=== PATIENT | female | born 1970 | race Caucasian/White ===

== ENCOUNTER 2018-04-29 13:37 | Inpatient (IN) | payer MEDICAID ==
[~2018-04-29] VITALS: Ht 165.1 cm; Wt 98.4 kg
--- NOTE | 2018-04-29 13:45 | NUR ---
PT BIB SELF WHO CAME IN DUE TO CHEST PAIN, 2HOURS PA, NON RADIATING. ALERT AND ORIENTED X 4, VERBALLY RESPONSIVE AND ABLE TO MAKE NEEDS KNOWN. ON ROOM AIR, BREATHING EVENLY AND UNLABORED. 6/10 PAIN SCALE. HOOKED UP ON THE MONITOR. KEPT COMFORTABLE. WILL CONTINUE TO MONITOR ACCORDINGLY.
[2018-04-29 14:01] LABS: BASOPHILS # (AUTO) 0.1 /CMM (0.0-0.2); EOSINOPHILS % (AUTO) 1.3 % (0.0-6.0); HEMATOCRIT 41 % (33-45); HEMOGLOBIN 13.6 g/dL (11.5-14.8); LYMPHOCYTES # (AUTO) 1.3 /CMM (0.8-4.8); LYMPHOCYTES % (AUTO) 17.1 % (20.0-44.0); MEAN CORPUSCULAR HGB CONC 33 g/dl (31.0-36.0); MEAN CORPUSCULAR VOLUME 90 fL (82-100); MONOCYTES # (AUTO) 0.7 /CMM (0.1-1.30); NEUTROPHILS # (AUTO) 5.6 /CMM (1.8-8.9); NEUTROPHILS % (AUTO) 71.6 % (43.0-81.0); PLATELET COUNT (AUTO) 193 /CMM (150-450); RED BLOOD CELL COUNT(AUTO) 4.61 MIL/uL (4.0-5.2); WHITE BLOOD COUNT (AUTO) 7.9 K/uL (4.3-11.0)
--- NOTE | 2018-04-29 14:05 | NUR ---
URINE COLLECTED AND SENT TO LAB.
[2018-04-29] MEDS ORDERED: NITROGLYCERIN PACKET 1 GM PACKET TD ONE (14:30)
[2018-04-29] MEDS ORDERED: ASPIRIN 81 MG TAB.CHEW PO ONE (14:30)
[2018-04-29] MEDS ORDERED: FUROSEMIDE 40 MG/4 ML VIAL IV ONE (14:30)
[2018-04-29] MEDS ORDERED: FUROSEMIDE 40 MG/4 ML VIAL ONE (14:39)
[2018-04-29] MEDS ORDERED: NITROGLYCERIN PACKET 1 GM PACKET ONE (14:40)
[2018-04-29] MEDS ORDERED: ASPIRIN EC 81 MG TABLET.DR PO ONE (14:40)
[2018-04-29 14:51] LABS: CALCIUM, SERUM 8.9 mg/dL (8.5-10.1); CARBON DIOXIDE 28 mmol/L (21-32); CHLORIDE 103 mmol/L (98-107); GLUCOSE 101 mg/dL (74-106); POTASSIUM 4.4 mmol/L (3.5-5.1); SODIUM SERUM 139 mmol/L (136-145); UREA NITROGEN, BLOOD 12 mg/dL (7-18)
[2018-04-29] MEDS ORDERED: AMBR10TA PO (14:59)
[2018-04-29] MEDS ORDERED: ATOR40TA PO (14:59)
[2018-04-29] MEDS ORDERED: POTA20TA83 PO (14:59)
[2018-04-29] MEDS ORDERED: SPIR50TA5 PO (14:59)
[2018-04-29] MEDS ORDERED: FERR325T27 PO (14:59)
[2018-04-29] MEDS ORDERED: CALC1TAB91 PO (14:59)
[2018-04-29] MEDS ORDERED: ALLO300T2 PO (14:59)
[2018-04-29] MEDS ORDERED: TADA20TA42 PO (15:02)
[2018-04-29] MEDS ORDERED: FURO40TA5 PO (15:02)
[2018-04-29 15:04] LABS: ALANINE AMINOTRANSFERASE 34 U/L (12-78); ALBUMIN 3.7 g/dL (3.4-5.0); ALKALINE PHOSPHATASE 83 U/L (46-116); ASPARTATE AMINOTRANSFERASE 21 U/L (15-37); B-TYPE NATRIURETIC PEPTIDE 812 PG/ML (0-125); BILIRUBIN,DIRECT 0.1 mg/dL (0.0-0.2); BILIRUBIN,TOTAL 0.3 mg/dL (0.2-1.0); TOTAL PROTEIN, SERUM 7.2 g/dL (6.4-8.2)
--- NOTE | 2018-04-29 17:42 | NUR ---
REPORT GIVEN TO HARRY PEREZ FOR FRANCISCA.
--- NOTE | 2018-04-29 18:09 | NUR ---
WHEELED PATIENT VIA GURNEY ACCOMPANIED BY EMT AND RN SSSIGNED VIA ACLS PROTOCOL TO ROOM 116-1 T. IN NO APPARENT DISTRESS NOTED.
--- NOTE | 2018-04-29 18:15 | NUR ---
SENIOR HYDROGEOLOGIST NOTES RECEIVED PT IN ROOM 116-1. PT IS A/OX4. PT HAVING CHEST PAIN-NON RADIATING. MONITORED ON TELE. SR 89. VITALS TAKEN. WILL REPORT TO PM NURSE FOR ADMISSION. BELONGINGS DONE BY SHAYY BARAJAS.
[2018-04-29 20:00] VITALS: BP 117/69
[2018-04-29] MEDS ORDERED: MAGNESIUM HYDROXIDE 30 ML UDC PO PRN (21:00)
[2018-04-29] MEDS ORDERED: MAG HYDROX/AL HYDROX/SIMETH 30 ML UDC PO PRN (21:00)
[2018-04-29] MEDS ORDERED: ONDANSETRON HCL/PF 4 MG/2 ML VIAL IVP PRN (21:00)
[2018-04-29] MEDS ORDERED: ZOLPIDEM TARTRATE 5 MG TABLET PO PRN (21:00)
[2018-04-29] MEDS ORDERED: Z GUARD REMEDY 2 OZ OINT TP PRN (21:00)
[2018-04-29] MEDS: HYDROCODONE/APAP 5/325MG 1 EACH TABLET PO PRN (21:25)
[2018-04-29] MEDS: ACETAMINOPHEN 325 MG TABLET PO PRN (23:39)
[2018-04-30] VITALS: BP 106/55
--- NOTE | 2018-04-30 00:10 | NUR ---
RN NOTES GAVE REPORT AND PATIENT TO CHRIS CAMARA
--- NOTE | 2018-04-30 00:11 | NUR ---
RN NOTES Received report from CHRIS Rankin for assume of care to this patient. Patient noted asleep on supine position. Call light within easy reach. No SOB/respiratory distress noted. Will continue to monitor accordingly.
[2018-04-30 00:17] VITALS: BP 106/55
[2018-04-30] MEDS: HYDROCODONE/APAP 5/325MG 1 EACH TABLET PO PRN ×5 (03:37→19:56)
--- NOTE | 2018-04-30 03:39 | NUR ---
RN NOTES Patient complained of headache and chest pain that is localized, tight, similar to the pain on admission, 10/21. Administered [place] as ordered. Will continue to monitor.
[2018-04-30 03:46] LABS: BASOPHILS # (AUTO) 0.1 /CMM (0.0-0.2); BASOPHILS % (AUTO) 0.6 % (0.0-2.0); EOSINOPHILS % (AUTO) 1.4 % (0.0-6.0); HEMATOCRIT 41 % (33-45); HEMOGLOBIN 13.5 g/dL (11.5-14.8); LYMPHOCYTES # (AUTO) 1.4 /CMM (0.8-4.8); LYMPHOCYTES % (AUTO) 15.2 % (20.0-44.0); MEAN CORPUSCULAR HGB CONC 33 g/dl (31.0-36.0); MEAN CORPUSCULAR VOLUME 89 fL (82-100); MONOCYTES % (AUTO) 10.9 % (2.0-12.0); NEUTROPHILS # (AUTO) 6.5 /CMM (1.8-8.9); NEUTROPHILS % (AUTO) 71.9 % (43.0-81.0); PLATELET COUNT (AUTO) 181 /CMM (150-450); RED BLOOD CELL COUNT(AUTO) 4.65 MIL/uL (4.0-5.2); WHITE BLOOD COUNT (AUTO) 9.1 K/uL (4.3-11.0)
[2018-04-30 04:00] VITALS: BP 100/62
[2018-04-30 04:03] LABS: CALCIUM, SERUM 9.1 mg/dL (8.5-10.1); CREATININE 1.2 mg/dL (0.6-1.3); MAGNESIUM 1.7 mg/dL (1.8-2.4); PHOSPHORUS 4.6 mg/dL (2.5-4.9); POTASSIUM 3.9 mmol/L (3.5-5.1)
[2018-04-30 04:15] LABS: THYROID STIMULATING HORMONE 2.634 uIU/mL (0.358-3.74)
[2018-04-30] MEDS: ACETAMINOPHEN 325 MG TABLET PO PRN (06:35)
--- NOTE | 2018-04-30 06:50 | NUR ---
PIGMENT MAKING SUPERVISOR CLOSING NOTES Patient asleep on bed on supine position. With patent peripheral IV line LAC G#20, SL. Patient denies discomfort at this time. On tele monitor with SR - 90. On RA, no SOB/respiratory distress noted. All needs attended. Due meds given as ordered. Kept bed low and locked. Call light within easy reach. Endorsed to the next shift.
--- NOTE | 2018-04-30 07:30 | NUR ---
RECEIVED PT. THIS AM ALERT AND ORIENTD X4. NO COMPLAINTS OFFERED.
[2018-04-30 08:00] VITALS: BP_SYST 102; BP_SYST 108; BP_DIAS 56
[2018-04-30] MEDS: PANTOPRAZOLE 40 MG TABLET.DR PO SCH (08:07)
[2018-04-30] MEDS: FERROUS SULFATE (325 MG) 325 MG/TAB TABLET PO SCH ×2 (08:07→18:09)
[2018-04-30] MEDS: SPIRONOLACTONE 25 MG TABLET PO SCH ×2 (09:00→17:00)
[2018-04-30] MEDS ORDERED: SPIRONOLACTONE 50 MG TABLET PO SCH (09:00)
[2018-04-30] MEDS: ATORVASTATIN 40 MG TABLET PO SCH (09:07)
[2018-04-30] MEDS: FUROSEMIDE 40 MG TABLET PO SCH ×2 (09:07→18:09)
[2018-04-30] MEDS: CALCIUM CARB 600MG /VIT D 1 EACH TABLET PO SCH (09:08)
[2018-04-30] MEDS: ALLOPURINOL 100 MG TABLET PO SCH (09:08)
[2018-04-30] MEDS: POTASSIUM CHLORIDE 20 MEQ TAB.PRT.SR PO SCH (09:08)
[2018-04-30] MEDS: Magnesium 1GM/D5W 100ML PREMIX 100 ML IV SCH ×2 (11:51→13:30)
[2018-04-30] MEDS: TADALAFIL 20 MG PO SCH (12:00)
--- NOTE | 2018-04-30 14:00 | NUR ---
home meds that pt. took in early am were letairis and tadalafil.
--- NOTE | 2018-04-30 14:00 | NUR ---
find meds at bedside,taken to pharm. noon meds not given as pt. took 2 of her own meds this am.
[2018-04-30 16:00] VITALS: BP 106/57
--- NOTE | 2018-04-30 16:53 | NUR ---
med. x 2 thus far with norco 5 mg pill. states headache and chest pain.states she spoke to dr. singh re; this pain.echo done thus far.
--- NOTE | 2018-04-30 17:29 | NUR ---
DUPLEX VENOUS DONE OF LOWER EXT.PT. TOLERATED WELL
[2018-04-30 20:00] VITALS: BP 105/66
[2018-05-01] MEDS: HYDROCODONE/APAP 5/325MG 1 EACH TABLET PO PRN (02:33)
[2018-05-01 04:00] VITALS: BP 115/64
[2018-05-01 06:22] LABS: BASOPHILS % (AUTO) 0.2 % (0.0-2.0); EOSINOPHILS % (AUTO) 0.7 % (0.0-6.0); HEMATOCRIT 42 % (33-45); HEMOGLOBIN 13.4 g/dL (11.5-14.8); LYMPHOCYTES # (AUTO) 1.1 /CMM (0.8-4.8); LYMPHOCYTES % (AUTO) 13.3 % (20.0-44.0); MEAN CORPUSCULAR HGB CONC 32 g/dl (31.0-36.0); MEAN CORPUSCULAR VOLUME 89 fL (82-100); MONOCYTES # (AUTO) 1.1 /CMM (0.1-1.30); MONOCYTES % (AUTO) 13.7 % (2.0-12.0); NEUTROPHILS # (AUTO) 5.7 /CMM (1.8-8.9); NEUTROPHILS % (AUTO) 72.1 % (43.0-81.0); PLATELET COUNT (AUTO) 168 /CMM (150-450); RED BLOOD CELL COUNT(AUTO) 4.65 MIL/uL (4.0-5.2); WHITE BLOOD COUNT (AUTO) 7.9 K/uL (4.3-11.0)
[2018-05-01 06:34] LABS: ALANINE AMINOTRANSFERASE 31 U/L (12-78); ALBUMIN 3.7 g/dL (3.4-5.0); ALKALINE PHOSPHATASE 74 U/L (46-116); ASPARTATE AMINOTRANSFERASE 21 U/L (15-37); BILIRUBIN,TOTAL 0.6 mg/dL (0.2-1.0); CALCIUM, SERUM 8.7 mg/dL (8.5-10.1); CARBON DIOXIDE 27 mmol/L (21-32); CHLORIDE 101 mmol/L (98-107); CREATININE 1.2 mg/dL (0.6-1.3); GLUCOSE 115 mg/dL (74-106); MAGNESIUM 1.8 mg/dL (1.8-2.4); PHOSPHORUS 3.9 mg/dL (2.5-4.9); POTASSIUM 3.5 mmol/L (3.5-5.1); SODIUM SERUM 138 mmol/L (136-145); TOTAL PROTEIN, SERUM 7.2 g/dL (6.4-8.2); UREA NITROGEN, BLOOD 15 mg/dL (7-18)
[2018-05-01 08:00] VITALS: BP 139/73
[2018-05-01] MEDS: CALCIUM CARB 600MG /VIT D 1 EACH TABLET PO SCH (08:17)
[2018-05-01] MEDS: ALLOPURINOL 100 MG TABLET PO SCH (08:18)
[2018-05-01] MEDS: SPIRONOLACTONE 25 MG TABLET PO SCH (08:18)
[2018-05-01] MEDS: ATORVASTATIN 40 MG TABLET PO SCH (08:18)
[2018-05-01] MEDS: FERROUS SULFATE (325 MG) 325 MG/TAB TABLET PO SCH (08:18)
[2018-05-01] MEDS: PANTOPRAZOLE 40 MG TABLET.DR PO SCH (08:18)
[2018-05-01] MEDS: TADALAFIL 20 MG PO SCH (08:19)
[2018-05-01] MEDS: ACETAMINOPHEN 325 MG TABLET PO PRN (08:22)
[2018-05-01] MEDS: FUROSEMIDE 40 MG TABLET PO SCH (08:22)
[2018-05-01] MEDS: POTASSIUM CHLORIDE 20 MEQ TAB.PRT.SR PO SCH (08:23)
--- NOTE | 2018-05-01 10:26 | NUR ---
Patient asleep on bed on supine position. With patent peripheral IV line LAC G#20, SL. Patient denies discomfort at this time. On tele monitor with SR - 90. On RA, no SOB/respiratory distress noted. All needs attended. Due meds given as ordered. Kept bed low and locked. Call light within easy reach. Will continue to treat and monitor.
[2018-05-01 10:46] LABS: ABG BASE EXCESS 1.7 mmol/L; ABG OXYGEN SATURATION 91.4 % (92.0-98.5); ABG PCO2 40.4 mmHg (35.0-45.0); ABG PH 7.429 (7.350-7.450); ABG PO2 60.4 mmHg (75.0-100.0); COHb 1.1 % (0.5-1.5); MetHb 0.6 % (0.0-1.5); O2Hb 89.8 % (94.0-97.0); SITE, ABG Right Radial; VENT MODE, BG ROOM AIR
[2018-05-01] MEDS ORDERED: IOHEXOL-350 100 ML VIAL IV ONE (11:09)
[2018-05-01] MEDS ORDERED: IV NS 0.9% 250 ML IV ONE (11:09)
[2018-05-01] MEDS ORDERED: CT SWABBABLE VALVE TRANS SET 1 EA INFUS.SET MC ONE (11:09)
--- NOTE | 2018-05-01 15:59 | NUR ---
LOTUS received a call from pt's RN informing LOTUS that pt. is requesting a verification of admission letter for her employer. LOTUS typed requested letter and gave it to the pt. No other social service needs are required at this time. LOTUS is available, if needed.
--- NOTE | 2018-05-01 16:01 | NUR ---
pt discharged in stable condition patient sent home in private car. told patient to follow up with primary care provider. patient verbalized understanding of discharge instructions.
== END 2018-05-01 15:15 | disposition home or self-care (01) | DRG 203 ==
LOC: ER 13:38 → TELE1 17:48 → MEDSG1 04-30 09:48
PROVIDERS: ADMIT Student in an Organized Health Care Education/Training Program; ATTEND Nurse Practitioner Acute Care
DX: M94.0 Chondrocostal junction syndrome [Tietze] (principal); I27.20 Pulmonary hypertension, unspecified; I42.9 Cardiomyopathy, unspecified; E83.42 Hypomagnesemia; E66.01 Morbid (severe) obesity due to excess calories; I13.0 Hypertensive heart and chronic kidney disease with heart failure and stage 1 through stage 4 chronic kidney disease, or unspecified chronic kidney disease; I50.9 Heart failure, unspecified; T50.5X5A Adverse effect of appetite depressants, initial encounter; N18.9 Chronic kidney disease, unspecified; F17.210 Nicotine dependence, cigarettes, uncomplicated; Z68.36 Body mass index [BMI] 36.0-36.9, adult; G47.33 Obstructive sleep apnea (adult) (pediatric); J40 Bronchitis, not specified as acute or chronic; I25.2 Old myocardial infarction; T50.5X Poisoning by, adverse effect of and underdosing of appetite depressants
CPT/HCPCS: 36415; 36600; 71045-TC; 71250-TC; 80048-TC; 80053-TC; 80061-TC; 80076-TC; 82803-TC; 83690-TC; 83735-TC; 83880; 84100-TC; 84443-TC; 84484-TC; 84703-TC; 85025-TC; 85730-TC; 87081-TC; 93307-TC; 93970-TC; A4606; G0378; J1940; J3475; J7050; Q9967; Z7610